=== PATIENT | male | born 2000 | race Two or more races ===

== ENCOUNTER 2019-06-16 09:02 | Emergency (ER) | payer OTHER ==
[~2019-06-16] VITALS: Ht 160 cm; Wt 83.9 kg
[2019-06-16 09:30] VITALS: BP 137/66
[2019-06-16] MEDS ORDERED: KETOROLAC TROMETH 60MG/2ML VIAL IM ONE (10:30)
== END 2019-06-16 11:15 | disposition home or self-care (01) ==
LOC: ER 09:05
DX: M25.571 Pain in right ankle and joints of right foot (principal)
CPT/HCPCS: 73610; 96372; 99283; J1885

== ENCOUNTER 2019-08-09 17:25 | Emergency (ER) | payer OTHER ==
[~2019-08-09] VITALS: Ht 160 cm; Wt 79.4 kg
[2019-08-09 21:15] VITALS: BP 122/78
== END 2019-08-09 21:30 | disposition home or self-care (01) ==
LOC: ER 17:30
DX: M21.41 Flat foot [pes planus] (acquired), right foot (principal); Q79.8 Other congenital malformations of musculoskeletal system; F12.10 Cannabis abuse, uncomplicated

== ENCOUNTER 2022-04-14 08:15 | Emergency (ER) | payer MEDICAID, OTHER ==
[~2022-04-14] VITALS: Ht 160 cm; Wt 96.0 kg
[2022-04-14 09:00] LABS: Basophils # (auto) 0 10 ^3/uL (0-0.2); Basophils % (auto) 0.5 % (0.0-2.0); Eosinophils # (auto) 0.1 10 ^3/uL (0-0.8); Eosinophils % (auto) 1.3 % (0.0-7.0); Hemoglobin 15.7 g/dL (13.5-17.5); Lymphocytes # (auto) 1.1 10 ^3/uL (0.4-5.4); Lymphocytes % (auto) 18.8 % (10.0-50.0); Mean Corpuscular Hemoglobin 29.7 pg (28.0-32.0); Mean Corpuscular Hgb Conc. 34.1 g/dL (32.0-36.0); Mean Corpuscular Volume 86.9 fL (80.0-100.0); Monocytes # (auto) 0.5 10 ^3/uL (0-1.3); Monocytes % (auto) 9.1 % (0.0-12.0); Neutrophils % (auto) 70.3 % (37.0-80.0); Red Blood Cells 5.29 10^6/uL (4.5-5.90); Red Cell Distribution Width 12.7 % (11.8-14.3); White Blood Cell 5.8 10^3/uL (4.4-10.8)
[2022-04-14 09:21] LABS: Calcium 8.5 mg/dL (8.5-10.1); Potassium 3.9 mmol/L (3.5-5.1)
[2022-04-14 09:27] LABS: Albumin 4.2 g/dL (3.4-5.0); BUN/Creatinine Ratio 15.2; Bilirubin, Total 1.7 mg/dL (0.2-1.0)
[2022-04-14] MEDS ORDERED: LIDOCAINE VISCOUS 2% 15ML UD PO ONE (09:30)
[2022-04-14] MEDS ORDERED: FAMOTIDINE (10MG/ML) 2ML VL IV ONE (09:30)
[2022-04-14] MEDS ORDERED: ONDANSETRON HCL 4 MG/2 ML VIAL IV ONE (09:30)
[2022-04-14] MEDS ORDERED: LACTATED RINGER'S 1,000 ML IV ONE (09:30)
[2022-04-14] MEDS ORDERED: ALUM & MAG HYDROX-SIMETH LIQ(MAALOX) 30 ML PO ONE (09:30)
[2022-04-14 09:59] LABS: Urine Bacteria NONE SEEN /hpf (None Seen); Urine Blood Negative /uL (Negative); Urine Hyaline Cast MOD /lpf (0 - 2); Urine Mucus FEW (None Seen); Urine Specific Gravity 1.032 (1.001-1.035); Urine WBC 1 /hpf (0 - 3)
[2022-04-14 12:00] VITALS: BP 124/78
== END 2022-04-14 12:33 | disposition home or self-care (01) ==
LOC: ER 08:15
DX: R10.13 Epigastric pain (principal); R11.2 Nausea with vomiting, unspecified; F12.10 Cannabis abuse, uncomplicated; R19.7 Diarrhea, unspecified
CPT/HCPCS: 36415; 80053; 81001; 82150; 83690; 85025; 96361; 96374; 96375; 99284; J2405; J3490

== ENCOUNTER 2022-11-16 04:55 | Emergency (ER) | payer BC, MEDICAID ==
[~2022-11-16] VITALS: Ht 160 cm; Wt 93.1 kg
[2022-11-16 06:36] VITALS: BP 130/77
[2022-11-16] MEDS ORDERED: AMOX875T3 PO ×2 (06:41)
[2022-11-16] MEDS ORDERED: AMOX-277 PO (06:42)
== END 2022-11-16 06:49 | disposition home or self-care (01) ==
LOC: ER 04:55
DX: H66.92 Otitis media, unspecified, left ear (principal); F12.90 Cannabis use, unspecified, uncomplicated; Z90.49 Acquired absence of other specified parts of digestive tract

== ENCOUNTER 2022-11-20 17:51 | Emergency (ER) | payer BC, MEDICAID ==
[~2022-11-20] VITALS: Ht 160 cm; Wt 95.7 kg
[~2022-11-20 17:51] MED LIST: AMOX-277 PO
[2022-11-20] MEDS ORDERED: KETOROLAC TROMETH 60MG/2ML VIAL IM ONE (18:00)
[2022-11-20] MEDS ORDERED: DexAMETHasone SOD PHOS 10MG/1ML VIAL INJ IM ONE (18:00)
[2022-11-20 18:03] VITALS: BP 156/86
[2022-11-20] MEDS ORDERED: COR10OTS OT (21:15)
[2022-11-20] MEDS ORDERED: CEFD300C2 PO (21:16)
[2022-11-20] MEDS ORDERED: HYDR-4902 PO (21:16)
[2022-11-20] MEDS ORDERED: IBUP800T26 PO (21:16)
== END 2022-11-21 01:36 | disposition home or self-care (01) ==
LOC: ER 17:51
DX: H66.92 Otitis media, unspecified, left ear (principal); F12.90 Cannabis use, unspecified, uncomplicated; Z90.49 Acquired absence of other specified parts of digestive tract

== ENCOUNTER 2024-03-05 04:15 | Emergency (ER) | payer BC, MEDICAID ==
[~2024-03-05] VITALS: Ht 160 cm; Wt 90.9 kg
[~2024-03-05 04:15] MED LIST changes: -AMOX-277 PO; +AMOX875T3 PO; +AMOX875T4 PO; +CEFD300C2 PO; +COR10OTS OT; +HYDR-4902 PO; +IBUP-1455 PO; +IBUP-1456 PO
[2024-03-05 06:23] VITALS: BP 119/74; PULSE 103; RESP 20; TEMP 97.9; O2SAT 94
[2024-03-05] MEDS ORDERED: CLIN1CAP70 PO (06:43)
[2024-03-05] MEDS ORDERED: IBUP1TAB5 PO (06:44)
== END 2024-03-05 06:44 | disposition home or self-care (01) ==
LOC: ER 04:15
DX: L03.116 Cellulitis of left lower limb (principal); F12.10 Cannabis abuse, uncomplicated; Z90.49 Acquired absence of other specified parts of digestive tract; Z91.010 Allergy to peanuts; Z79.899 Other long term (current) drug therapy

== ENCOUNTER 2024-07-05 12:45 | Emergency (ER) | payer BC, MEDICAID ==
[~2024-07-05] VITALS: Ht 160 cm; Wt 100.6 kg
[~2024-07-05 12:45] MED LIST changes: +CLIN1CAP70 PO; +IBUP1TAB5 PO
[2024-07-05 12:55] VITALS: TEMP 98.3
[2024-07-05 12:58] VITALS: BP 151/79; PULSE 92; RESP 18; O2SAT 98
--- NOTE | 2024-07-05 14:05 | ED.PDOC ---
History of Present Illness HPI Comments A 23 YEAR OLD MALE PRESENTS TO THE ED WITH COMPLAINT OF ALLERGIC REACTION. PATIENT STATES HE ATE FOOD CONTAINING WALNUTS AND BEGAN TO AND BEGAN TO EXPERIENCE SKIN ITCHINESS AND THROAT SWELLING. PATIENT NOTES HE USED HIS EPIPEN AT HOME WHICH ALLEVIATED MOST OF HIS SYMPTOMS, BUT STATES HE STILL HAS MILD ITCHINESS AND THROAT IRRITATION AT THIS TIME. PATIENT DENIES FEVER, CHILLS, SHORTNESS OF BREATH, CHEST PAIN, ABDOMINAL PAIN, NAUSEA, VOMITING, HEADACHE, OR OTHER COMPLAINTS. NO OTHER SYMPTOMS OR MODIFYING FACTORS AT THIS TIME. PATIENT IS ALERT, ORIENTED X 4, AND HAS STEADY GAIT. Chief Complaint: Allergic Reaction Time Seen by MD: 12:59 Primary Care Provider: PIEDAD MELVIN Reviewed Notes: Nurses Notes, Medications, Allergies Allergies: Uncoded Allergies: NUTS (Allergy, Unknown, 03/05/24) Home Meds Active Scripts Ibuprofen Micronized (Ibuprofen) 600 Mg Tab, 600 MG PO Q6HPRN PRN for 5 Days, #20 TAB Prov:LIVIA CASIANO CERTIFIED HYPERBARIC TECHNICIAN 03/05/24 Clindamycin Hcl (Clindamycin Hcl) 300 Mg Cap, 1 CAP PO TID for 10 Days, #30 CAP Prov:LIVIA CASIANO CERTIFIED HYPERBARIC TECHNICIAN 03/05/24 Ibuprofen (Ibuprofen) 800 Mg Tab, 1 TAB PO TID, #30 TAB Prov:YANG CUMMINS 12/07/23 Amoxicillin Trihydrate (Amoxicillin) 875 Mg Tab, 1 TAB PO BID, #20 TAB Prov:YANG CUMMINS 12/07/23 Hydrocodone-Acetaminophen (Hydrocodone Bitartrate/AC 5-325 mg) 1 Tab Tab, 1 TAB PO Q6HP PRN, #10 TAB Prov:EVIE LINDSAY PAC 11/20/22 Ibuprofen Micronized (Ibuprofen) 800 Mg Tab, 800 MG PO Q8HP PRN, #30 TAB Prov:EVIE LINDSAY PAC 11/20/22 Cefdinir (Cefdinir) 300 Mg Cap, 1 CAP PO BID for 10 Days, #20 CAP Prov:EVIE LINDSAY PAC 11/20/22 Vtsqtxen-Kyjlqjiwa-Jj (Otic) (Cortisporin Otic Soln) [address], 4 DROP OT QID for 7 Days, #3.5 DROP Prov:EVIE LINDSAY PAC 11/20/22 Amoxicillin & Pot Clavulanate (Amoxicillin/Potassium Cla) 875 Mg Tab, 1 TAB PO B ID, #20 TAB Prov:YANG CUMMINS 11/16/22 Information Source: Patient Mode of Arrival: Ambulatory Severity: Moderate Timing: Days Duration: Since onset, Days Prehospital treatment: None Medication Refill: For: Other (ALLERGIC REACTION) Past Medical History Past Medical History (Other): ALLERGY Surgical History: Appendectomy Family History Family History: Reviewed,noncontributory to illness Social History Smoker: Non-Smoker Alcohol: Denies ETOH Use Drugs: Marijuana Lives In: Home Constitutional: denies: chills, diaphoresis, fatigue, fever, malaise, sweats, weakness, others EENTM: reports: others (THROAT IRRITATION); denies: blurred vision, double vision, ear bleeding, ear discharge, ear drainage, ear pain, ear ringing, eye pain, eye redness, hearing loss, mouth pain, mouth swelling, nasal discharge, nose bleeding, nose congestion, nose pain, photophobia, tearing, throat pain, throat swelling, voice changes Respiratory: denies: cough, hemoptysis, orthopnea, SOB at rest, shortness of breath, SOB with excertion, stridor, wheezing, others Cardiovascular: denies: chest pain, dizzy spells, diaphoresis, Dyspnea on exertion, edema, irregular heart beat, left arm pain, lightheadedness, palpitations, PND, syncope, others Gastrointestinal: denies: abdomen distended, abdominal pain, blood streaked bowels, constipated, diarrhea, dysphagia, difficulty swallowing, hematemesis, melena, nausea, poor appetite, poor fluid intake, rectal bleeding, rectal pain, vomiting, others Genitourinary: denies: burning, dysuria, flank pain, frequency, hematuria, incontinence, penile discharge, penile sore, pain, testicle pain, testicle swelling, urgency, others Neurological: denies: dizziness, fainting, headache, left sided numbness, left sided weakness, numbness, paresthesia, pre-existing deficit, right sided numbness, right sided weakness, seizure, speech problems, tingling, tremors, weakness, others Musculoskeletal: denies: back pain, gout, joint pain, joint swelling, muscle pain, muscle stiffness, neck pain, others Integumetry: reports: rash, others (ITCHING); denies: bruises, change in color, change in hair/nails, dryness, laceration, lesions, lumps, wounds Allergic/Immunocompromised: reports: Hives, Itching; denies: Difficulty Healing, Frequent Infections, others Hematologic/Lymphatic: denies: anemia, blood clots, easy bleeding, easy bruising, swollen glands, others Endocrine: denies: excessive hunger, excessive sweating, excessive thirst, excessive urination, flushing, intolerance to cold, intolerance to heat, unexplained weight gain, unexplained weight loss, others Psychiatric: denies: anxiety, bipolar disorder, depression, hopeless, panic disorder, schizophrenia, sleepless, suicidal, others All Other Systems: Reviewed and Negative Physical Exam General Appearance: Obese HEENT: PERRL/EOMI, Pharyngeal Erythema (MILD TONSILLAR SWELLING, NO EXUDATES. ), TMs Normal Neck: Full Range of Motion, Non-Tender, Normal, Normal Inspection Respiratory: Chest Non-Tender, Lungs Clear, No Accessory Muscle Use, No Respiratory Distress, Normal Breath Sounds Cardiovascular: No Edema, No JVD, No Murmur, No Gallop, Normal Peripheral Pulses, Regular Rate/Rhythm Breast Exam: Deferred Gastrointestinal: No Organomegaly, Non Tender, No Pulsatile Mass, Normal Bowel Sounds, Soft Genitalia: Deferred Pelvic: Deferred Rectal: Deferred Extremities: No calf tenderness, Normal capillary refill, Normal inspection, Normal range of motion, Non-tender, No pedal edema Musculoskeletal : Apperance: Normal Neurologic: Alert, vascular specialists II-XII nml as Tested, No Motor Deficits, Normal Affect, Normal Mood, No Sensory Deficits Cerebellar Function: Normal Reflexes: Normal Skin: Dry, Rash (ERYTHEMA SKIN RASH WITH HIVES ON BACK, NECK AND SARMS, NO TENDERNESS AND SWELLING. ), Warm Peripheral Pulses: 2+ carotid (R), 2+ carotid (L), 2+ Radial (R), 2+ Radial (L) Lymphatic: No Adenopathy Was a procedure done? Was a procedure done?: No Differential Dx Considerations may include: ALLERGIC REACTION, THROAT IRRITATION, CONTACT DERMATITIS X-Ray, Labs, Meds, VS Vital Signs Date Time Temp Pulse Resp B/P (MAP) Pulse Ox O2 Delivery O2 Flow Rate FiO2 07/05/24 12:58 98.3 92 18 151/79 (103) 98 07/05/24 12:55 98.3 92 18 151/79 (103) 98 98.3 Current Medications Medications (Trade) Dose Ordered Sig/Jane Route Start Time Stop Time Status Last Admin Methylprednisolone Sodium Succinate (Solu Medrol) 125 mg ONCE ONCE IM 07/05/24 14:15 07/05/24 14:16 07/05/24 14:09 X-Ray, Labs, Meds, VS Comment TREATMENT: SOLU-MEDROL 125 MG IM Time of 1ST Reevaluation: 14:30 Reevaluation 1ST: Improved Patient Education/Counseling: Diagnosis, Treatment, Need For Follow Up Family Education/Counseling: Diagnosis, Treatment, Need For Follow Up Medical Screening: No EMC Exist At This Time Departure 1 Departure Time of Disposition: 14:30 Impression: Primary Impression: Allergic reaction Qualified Codes: T78.40XA - Allergy, unspecified, initial encounter Disposition: HOME / SELF CARE / HOMELESS Condition: Stable Additional Instructions: FOLLOW-UP WITH PCP IN 1 TO 2 DAYS. TAKE MEDICATIONS PRESCRIBED. RETURN TO ED FOR ANY NEW OR WORSENING SYMPTOMS. e-Prescriptions Methylprednisolone (Medrol Dosepak) 4 Mg Nguyễn 4 MG PO UD, #21 TAB UAD Prov: YANG CUMMINS 07/05/24 Discharged With: Self Critical Care Note Critical Care Time?: No Stability Stability form required: No I personally scribed for YANG CUMMINS ([email or web address]) on 07/05/24 at 14:05. Electronically submitted by Juan Mendoza ([email or web address]). YANG CUMMINS Jul 05, 2024 14:05
[2024-07-05] MEDS: methylPREDNISolone SOD SUCC 125 MG/2 ML VL IM ONE (14:09)
[2024-07-05] MEDS ORDERED: METH4PAK PO (14:14)
== END 2024-07-05 14:33 | disposition home or self-care (01) ==
LOC: ER 12:45
DX: T78.49XA Other allergy, initial encounter (principal); F15.90 Other stimulant use, unspecified, uncomplicated; Z90.49 Acquired absence of other specified parts of digestive tract; Z79.1 Long term (current) use of non-steroidal anti-inflammatories (NSAID); Z79.899 Other long term (current) drug therapy; X58.XXXA Exposure to other specified factors, initial encounter
CPT/HCPCS: 96372; 99283; J2919

== ENCOUNTER 2025-03-20 08:16 | Emergency (ER) | payer BC, MEDICAID ==
[~2025-03-20] VITALS: Ht 160 cm; Wt 101.5 kg
[~2025-03-20 08:16] MED LIST changes: +METH4PAK PO
--- NOTE | 2025-03-20 08:29 | ED.PDOC ---
Back pain HPI HPI Comments A 24 YEAR-OLD MALE PRESENTS TO THE ED WITH A CHIEF COMPLAINT OF LEFT UPPER BACK PAIN OF THIS MORNING. PATIENT REPORTS THAT PAIN IS A 7/10, EXACERBATED WITH BREATHING, WITH PAIN RADIATION TO THE LEFT UPPER CHEST WALL. 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 MOVEMENT AND PHYSICAL ACTIVITY INCREASES INCREASES LEFT UPPER BACK PAIN AND CHEST WALL PAIN. RESTING DECREASES THE PAIN. PATIENT HAS NO FURTHER COMPLAINTS AT THIS TIME AND OTHERWISE DENIES FURTHER ASSOCIATED SOB, PALPITATIONS, MIGRAINE, DIZZINESS, N/V, OR FEVER. NO OTHER SYMPTOMS REPORTED AT THIS TIME OF CARE. Chief Complaint: Back Paim Time Seen by MD: 08:25 Primary Care Provider: PIEDAD MELVIN Reviewed Notes: Nurses Notes, Medications, Allergies Allergies: Uncoded Allergies: NUTS (Allergy, Unknown, 03/05/24) Home Meds Active Scripts Methylprednisolone (Medrol Dosepak) 4 Mg Nguyễn, 4 MG PO UD, #21 TAB UAD Prov:YANG CUMMINS 07/05/24 Ibuprofen Micronized (Ibuprofen) 600 Mg Tab, 600 MG PO Q6HPRN PRN for 5 Days, #20 TAB Prov:LIVIA CASIANO MARINE DESIGNER 03/05/24 Clindamycin Hcl (Clindamycin Hcl) 300 Mg Cap, 1 CAP PO TID for 10 Days, #30 CAP Prov:LIVIA CASIANO MARINE DESIGNER 03/05/24 Ibuprofen (Ibuprofen) 800 Mg Tab, 1 TAB PO TID, #30 TAB Prov:YANG CUMMINS 12/07/23 Amoxicillin Trihydrate (Amoxicillin) 875 Mg Tab, 1 TAB PO BID, #20 TAB Prov:YANG CUMMINS 12/07/23 Hydrocodone-Acetaminophen (Hydrocodone Bitartrate/AC 5-325 mg) 1 Tab Tab, 1 TAB PO Q6HP PRN, #10 TAB Prov:EVIE LINDSAY PAC 11/20/22 Ibuprofen Micronized (Ibuprofen) 800 Mg Tab, 800 MG PO Q8HP PRN, #30 TAB Prov:EVIE LINDSAY PAC 11/20/22 Cefdinir (Cefdinir) 300 Mg Cap, 1 CAP PO BID for 10 Days, #20 CAP Prov:EVIE LINDSAY PAC 11/20/22 Ejqdumka-Fqaasdaqo-Wq (Otic) (Cortisporin Otic Soln) [address], 4 DROP OT QID for 7 Days, #3.5 DROP Prov:EVIE LINDSAY Gisele PAC 11/20/22 Amoxicillin & Pot Clavulanate (Amoxicillin/Potassium Cla) 875 Mg Tab, 1 TAB PO BID, #20 TAB Prov:YANG CUMMINS PA 11/16/22 Information Source: Patient Mode of Arrival: Ambulatory Timing: Hours Duration: Since onset, Hours Location of Back pain: (L) Upper back, Other (LEFT CHEST WALL ) Severity: Mild, Moderate Prehospital treatment: None Quality: Aching Onset: Spontaneous Circumstance: Work Related History of: None Modifying Factors: Movement, Twisting, Breathing Associated signs and symptoms: None Past Medical History PAST MEDICAL HISTORY: Denies Surgical History: Appendectomy Family History Family History: Reviewed,noncontributory to illness Social History Smoker: Non-Smoker Alcohol: Denies ETOH Use Drugs: Marijuana Lives In: Home Constitutional: denies: chills, diaphoresis, fatigue, fever, malaise, sweats, weakness, others EENTM: denies: blurred vision, double vision, ear bleeding, ear discharge, ear drainage, ear pain, ear ringing, eye pain, eye redness, hearing loss, mouth pain, mouth swelling, nasal discharge, nose bleeding, nose congestion, nose pain, photophobia, tearing, throat pain, throat swelling, voice changes, others Respiratory: denies: cough, hemoptysis, orthopnea, SOB at rest, shortness of breath, SOB with excertion, stridor, wheezing, others Cardiovascular: reports: chest pain; denies: dizzy spells, diaphoresis, Dyspnea on exertion, edema, irregular heart beat, left arm pain, lightheadedness, palpitations, PND, syncope, others Gastrointestinal: denies: abdomen distended, abdominal pain, blood streaked bowels, constipated, diarrhea, dysphagia, difficulty swallowing, hematemesis, melena, nausea, poor appetite, poor fluid intake, rectal bleeding, rectal pain, vomiting, others Genitourinary: denies: burning, dysuria, flank pain, frequency, hematuria, incontinence, penile discharge, penile sore, pain, testicle pain, testicle swelling, urgency, others Neurological: denies: dizziness, fainting, headache, left sided numbness, left sided weakness, numbness, paresthesia, pre-existing deficit, right sided numbness, right sided weakness, seizure, speech problems, tingling, tremors, weakness, others Musculoskeletal: reports: back pain, muscle pain; denies: gout, joint pain, joint swelling, muscle stiffness, neck pain, others Integumetry: denies: bruises, change in color, change in hair/nails, dryness, laceration, lesions, lumps, rash, wounds, others Allergic/Immunocompromised: denies: Difficulty Healing, Frequent Infections, Hives, Itching, others Hematologic/Lymphatic: denies: anemia, blood clots, easy bleeding, easy bruising, swollen glands, others Endocrine: denies: excessive hunger, excessive sweating, excessive thirst, excessive urination, flushing, intolerance to cold, intolerance to heat, unexplained weight gain, unexplained weight loss, others Psychiatric: denies: anxiety, bipolar disorder, depression, hopeless, panic disorder, schizophrenia, sleepless, suicidal, others All Other Systems: Reviewed and Negative Physical Exam General Appearance: No Apparent Distress, Normal HEENT: Normal ENT Inspection, PERRL/EOMI, Pharynx Normal, TMs Normal Neck: Full Range of Motion, Non-Tender, Normal, Normal Inspection Respiratory: Lungs Clear, No Accessory Muscle Use, No Respiratory Distress, Normal Breath Sounds, Other (TENDERNESS ON LEFT SIDE CHEST WALL. ) Cardiovascular: No Edema, No JVD, No Murmur, No Gallop, Normal Peripheral Pulses, Regular Rate/Rhythm Breast Exam: Deferred Gastrointestinal: No Organomegaly, Non Tender, No Pulsatile Mass, Normal Bowel Sounds, Soft Genitalia: Deferred Pelvic: Deferred Rectal: Deferred Extremities: No calf tenderness, Normal capillary refill, Normal inspection, Normal range of motion, Non-tender, No pedal edema Musculoskeletal : Location: Left Extremity Location: Back Apperance: Tenderness (AND MUSCLE SPASM ON LEFT UPPER BACK, NO REDNESS AND SWELLING, NO DEFORMITY. ) Neurologic: Alert, identity management consultant II-XII nml as Tested, No Motor Deficits, Normal Affect, Normal Mood, No Sensory Deficits Cerebellar Function: Normal Reflexes: Normal Skin: Dry, Normal Color, Warm Peripheral Pulses: 2+ carotid (R), 2+ carotid (L) Lymphatic: No Adenopathy Was a procedure done? Was a procedure done?: No EKG EKG : Pulse Rate (adult): 84 [place]: Normal Block: None Hypertrophy: None ST: Normal Back Pain Differential Dx Differential Diagnosis: Musculoskeletal Pain, Other (CHEST WALL, MUSCLE STRAIN OF LEFT UPPER BACK AND CHEST WALL) X-Ray, Labs, Meds, VS Vital Signs Date Time Temp Pulse Resp B/P (MAP) Pulse Ox O2 Delivery O2 Flow Rate FiO2 03/20/25 10:16 98.2 74 16 144/96 (112) 100 98.2 03/20/25 09:06 84 16 96 Room Air* 0 21 03/20/25 08:52 84 03/20/25 08:26 97.9 87 18 135/99 (111) 98 97.9 Lab Test 03/20/25 08:35 Range/Units White Blood Count 5.9 4.4-10.8 10^3/uL Red Blood Count 5.06 4.5-5.90 10^6/uL Hemoglobin 15.5 13.5-17.5 g/dL Hematocrit 43.5 41.0-53.0 % Mean Corpuscular Volume 85.9 80.0-100.0 fL Mean Corpuscular Hemoglobin 30.7 28.0-32.0 pg Mean Corpuscular Hemoglobin Concent 35.7 32.0-36.0 g/dL Red Cell Distribution Width 12.9 11.8-14.3 % Platelet Count 297 140-450 10^3/uL Mean Platelet Volume 6.9 6.9-10.8 fL Neutrophils (%) (Auto) 57.4 37.0-80.0 % Lymphocytes (%) (Auto) 33.1 10.0-50.0 % Monocytes (%) (Auto) 6.8 0.0-12.0 % Eosinophils (%) (Auto) 1.9 0.0-7.0 % Basophils (%) (Auto) 0.8 0.0-2.0 % Neutrophils # (Auto) 3.4 1.6-8.6 10 ^3/uL Lymphocytes # (Auto) 2.0 0.4-5.4 10 ^3/uL Monocytes # (Auto) 0.4 0-1.3 10 ^3/uL Eosinophils # (Auto) 0.1 0-0.8 10 ^3/uL Basophils # (Auto) 0 0-0.2 10 ^3/uL Nucleated Red Blood Cells 0.1 % Sodium Level 140 136-145 mmol/L Potassium Level 4.3 3.5-5.1 mmol/L Chloride Level 109 H 98-107 mmol/L Carbon Dioxide Level 24 20-31 mmol/L Anion Gap 7 5-15 Blood Urea Nitrogen 13 9-23 mg/dL Creatinine 0.80 0.700-1.30 mg/dL Glomerular Filtration Rate Calc 125 >90 mL/min BUN/Creatinine Ratio 16.3 10.0-20.0 Serum Glucose 102 74-106 mg/dL Calcium Level 9.7 8.7-10.4 mg/dL Troponin I High Sensitivity < 3 L </=54 ng/L Current Medications Medications (Trade) Dose Ordered Sig/Jane Route Start Time Stop Time Status Last Admin Ketorolac Tromethamine (Toradol Injection) 60 mg ONCE ONCE IM 03/20/25 08:30 03/20/25 08:31 DC 03/20/25 08:45 XY CHEST XRAY 1 VIEW, HISTORY: LEFT UPPER BACK PAIN TO LEFT CHEST COMPARISON: None None TECHNICAL DATA: 1 view of the chest was obtained. FINDINGS: Lines and tubes: None Cardiomediastinal silhouette: normal Pulmonary vasculature: normal Lung expansion: normal Lung airspace: normal Lung interstitium: normal Pleura: normal Pneumothorax: no Bones: Unremarkable Other: no IMPRESSION: No acute intrathoracic abnormality. X-Ray, Labs, Meds, VS Comment EXTERNAL MEDICAL RECORDS REVIEWED: NONE INDEPENDENT HISTORIANS: NONE SOCIAL DETERMINANTS OF HEALTH: NONE LABS ORDERED: BMP, BLOOD COUNT, TROPONIN REVIEWED AND INTERPRETED RESULTS: NONE IMAGING ORDERED: CHEST XRAY TREATMENTS ORDERED: TORADOL INJECTION 60MG/2 ML PROCEDURES PERFORMED: NONE CRITICAL CARE TIME: NONE I HAVE DISCUSSED THE PATIENT WITH THE ATTENDING PHYSICIAN DR. PETERSON AND HE AGREES WITH THE PATIENT'S PLAN OF CARE AND DISPOSITION. BASED ON HISTORY OF PRESENT ILLNESS, AND PHYSICAL EXAM, PATIENT WILL BE DISCHARGED HOME. DISCUSSED PLAN FOR DISCHARGE HOME WITH RX IBUPROFEN AND ROBAXI. MEDICATION WARNINGS GIVEN. SHARED DECISION MAKING: DISCUSSED WITH PATIENT THAT THEIR WORKUP WAS NORMAL. PAT IENT INSTRUCTED TO FOLLOW UP WITH PRIMARY CARE PROVIDER IN 1-2 DAYS FOR RE- EVALUATION OF SYMPTOMS. PATIENT VERBALIZES UNDERSTANDING TO RETURN TO ED FOR NEW OR WORSENING SYMPTOMS OR IF FOLLOW UP WITH PCP CANNOT BE OBTAINED. PATIENT FEELS COMFORTABLE GOING HOME AT THIS TIME. ALL QUESTIONS ADDRESSED AT TIME OF DISCHARGE Time of 1ST Reevaluation: 10:20 Reevaluation 1ST: Improved Patient Education/Counseling: Diagnosis, Treatment, Need For Follow Up Family Education/Counseling: Diagnosis, Treatment, No Family Present Medical Screening: No EMC Exist At This Time SEPSIS Sepsis Screen Physician Orders Chest Xray 1 View (03/20/25 08:26) Vital Signs Date Time Temp Pulse Resp B/P (MAP) Pulse Ox O2 Delivery O2 Flow Rate FiO2 03/20/25 10:16 98.2 74 16 144/96 (112) 100 98.2 03/20/25 09:06 84 16 96 Room Air* 0 21 03/20/25 08:52 84 03/20/25 08:26 97.9 87 18 135/99 (111) 98 97.9 Laboratory Tests Test 03/20/25 08:35 White Blood Count 5.9 10^3/uL (4.4-10.8) Medications Medications Dose Ordered Sig/Jane Route Start Time Stop Time Status Last Admin Dose Admin Ketorolac Tromethamine 60 mg ONCE ONCE IM 03/20/25 08:30 03/20/25 08:31 DC 03/20/25 08:45 Departure 1 Departure Time of Disposition: 10:22 Impression: Primary Impression: Non-cardiac chest pain Additional Impression: Musculoskeletal pain Disposition: 01 HOME / SELF CARE / HOMELESS Condition: Stable Additional Instructions: FOLLOW-UP WITH PCP IN 1 TO 2 DAYS. TAKE MEDICATIONS PRESCRIBED. RETURN TO ED FOR ANY NEW OR WORSENING SYMPTOMS. e-Prescriptions Methocarbamol (Methocarbamol) 750 Mg Tab 750 MG PO BID, #20 TAB Prov: YANG CUMMINS 03/20/25 Ibuprofen (Ibuprofen) 800 Mg Tab 1 TAB PO TID, #30 TAB Prov: YANG CUMMINS 03/20/25 Discharged With: Self Critical Care Note Critical Care Time?: No Stability Stability form required: No Heart Score Heart Score: Heart Score Response (Comments) Value History Slightly Suspicious 0 EKG Normal 0 Age <45 0 Risk Factors No known risk factors 0 Troponin Normal limit 0 Total 0 I personally scribed for YANG CUMMINS ([email or web address]) on 03/20/25 at 08:29. Electronically submitted by Alysha Alcazar ([facility]). I personally scribed for YANG CUMMINS ([email or web address]) on 03/20/25 at 08:56. Electronically submitted by Alysha Alcazar ([email or web address]). I personally scribed for YANG CUMMINS ([email or web address]) on 03/20/25 at 08:59. Electronically submitted by Alysha Alcazar ([email or web address]). YANG CUMMINS Mar 20, 2025 08:29
--- NOTE | 2025-03-20 08:30 | ECG ---
[facility] Test Date: 2025-03-20 Test Time: 08:29:12 Pat Name: MARIO ANDRADE Department: ER Room: Gender: M Ict Quality Assurance Engineer: TOLU : 2000 Requested By: YANG CUMMINS Order Number: [id number] Reading MD: Measurements Intervals [place] Rate: 84 P: 35 TN: 141 QRS: 11 QRSD: 101 T: 42 QT: 388 QTc: 459 Interpretive Statements Sinus rhythm Please click the below link to view image of tracing.
[2025-03-20] MEDS: KETOROLAC TROMETH 60MG/2ML VIAL IM ONE (08:45)
[2025-03-20 08:54] LABS: Hematocrit 43.5 % (41.0-53.0); Hemoglobin 15.5 g/dL (13.5-17.5); Mean Corpuscular Hemoglobin 30.7 pg (28.0-32.0); Mean Corpuscular Volume 85.9 fL (80.0-100.0); Nucleated Red Blood Cells % 0.1 %
--- NOTE | 2025-03-20 09:01 | DVH ---
XY CHEST XRAY 1 VIEW, HISTORY: LEFT UPPER BACK PAIN TO LEFT CHEST COMPARISON: None None TECHNICAL DATA: 1 view of the chest was obtained. FINDINGS: Lines and tubes: None Cardiomediastinal silhouette: normal Pulmonary vasculature: normal Lung expansion: normal Lung airspace: normal Lung interstitium: normal Pleura: normal Pneumothorax: no Bones: Unremarkable Other: no IMPRESSION: No acute intrathoracic abnormality.
[2025-03-20 09:06] VITALS: PULSE 84; RESP 16; O2SAT 96
[2025-03-20 09:06] LABS: Potassium 4.3 mmol/L (3.5-5.1); Sodium 140 mmol/L (136-145)
[2025-03-20 09:07] LABS: Anion Gap 7 (5-15); Carbon Dioxide 24 mmol/L (20-31)
[2025-03-20 09:08] LABS: Calcium 9.7 mg/dL (8.7-10.4)
[2025-03-20 09:10] LABS: Chloride 109 mmol/L (98-107)
[2025-03-20 09:12] LABS: Glucose 102 mg/dL (74-106)
[2025-03-20 09:13] LABS: BUN/Creatinine Ratio 16.3 (10.0-20.0); Blood Urea Nitrogen 13 mg/dL (9-23)
[2025-03-20 10:16] VITALS: BP 144/96; PULSE 74; RESP 16; TEMP 98.2; O2SAT 100
[2025-03-20] MEDS ORDERED: METH-1182 PO (10:23)
== END 2025-03-20 10:23 | disposition home or self-care (01) ==
LOC: ER 08:16
DX: R07.89 Other chest pain (principal); M79.18 Myalgia, other site; M54.6 Pain in thoracic spine; F12.90 Cannabis use, unspecified, uncomplicated; Z79.1 Long term (current) use of non-steroidal anti-inflammatories (NSAID); Z79.899 Other long term (current) drug therapy; Z90.89 Acquired absence of other organs
CPT/HCPCS: 36415; 71045; 80048; 84484; 85025; 93005; 96372; 99285; J1885